=== PATIENT | male | born 1930 | race Caucasian/White ===

== ENCOUNTER 2017-12-21 08:50 | Emergency (ER) | payer OTHER ==
[~2017-12-21] VITALS: Ht 170.2 cm; Wt 72.6 kg
[~2017-12-21 08:50] MED LIST: ACCUNEB SO1.25 MG/1 INH; AUGMENTIN 875-1 EACH PO; CRESTOR20 MG PO; DESVENLAFAXINE50 M2 PO; FLONASE 0.05%50 MCG NASAL; HYDRALAZINE 2525 MG PO; IPRATROPIUM BROMIDE NASAL; ISOSORBIDE DINI30 MG PO; LASIX 40 MG TAB40 M2 PO; MUCINEX600 MG PO; MYLANTA PO; POTASSIUM PO; PREDNISONE 20 M20 MG PO; PULMICORT0.5 MG/22 INH; RYTARY ER 36.21 EACH PO; TYLENOL EXTRA500 MG PO; XALATAN2.5 ML OPHTHALMIC; XARELTO20 MG PO
[2017-12-21] MEDS ORDERED: PREDNISONE 10 M10 MG PO (09:00)
[2017-12-21] MEDS ORDERED: SINGULAIR 10 MG10 M1 PO (09:02)
[2017-12-21] MEDS ORDERED: LEVAQUIN 250 M250 MG PO (09:02)
== END 2017-12-21 11:58 | disposition home or self-care (01) ==
LOC: ER 08:50
DX: S79.911A Unspecified injury of right hip, initial encounter (principal); I10 Essential (primary) hypertension; K21.9 Gastro-esophageal reflux disease without esophagitis; M19.90 Unspecified osteoarthritis, unspecified site; E78.5 Hyperlipidemia, unspecified; W18.30XA Fall on same level, unspecified, initial encounter; Y93.89 Activity, other specified; Y92.89 Other specified places as the place of occurrence of the external cause; Y99.8 Other external cause status